=== PATIENT | female | born 1950 | race Caucasian/White ===

== ENCOUNTER 2020-04-02 06:20 | Emergency (ER) | payer MEDICARE, BC ==
[2020-04-02] MEDS ORDERED: Cephalexin 500 MG Cap PO ONE (06:43)
--- NOTE | 2020-04-02 06:50 | EDM.PDOC ---
ED HPI GENERAL MEDICAL PROBLEM - General Chief Complaint: Genitourinary Problem Stated Complaint: BLOOD IN URINE Time Seen by Provider: 04/02/20 06:35 Source of Information: Reports: Patient History Limitations: Reports: No Limitations - History of Present Illness INITIAL COMMENTS - FREE TEXT/NARRATIVE: -69 year-old female presents to the emergency room with a chief complaint of hematuria and frequency. Patient denies fever chills or abdominal pain Onset: Today Duration: Hour(s): Location: Reports: Pelvis Quality: Reports: Ache Severity: Mild Improves with: Reports: None Worsens with: Reports: None Associated Symptoms: Reports: No Other Symptoms - Related Data Allergies Allergy/AdvReac Type Severity Reaction Status Date / Time No Known Allergies Allergy Verified 04/02/20 06:38 Home Meds: Home Meds Losartan [Cozaar] 1 tab PO DAILY 04/02/20 [History] cephALEXin [Keflex] 500 mg PO Q8H #20 cap 04/02/20 [Rx] hydroCHLOROthiazide [Hydrochlorothiazide] 1 tab PO DAILY 04/02/20 [History] Past Medical History Cardiovascular History: Reports: Hypertension Genitourinary History: Reports: UTI, Recurrent Social & Family History - Tobacco Use Smoking Status *Q: Never Smoker - Recreational Drug Use Recreational Drug Use: No ED ROS GENERAL - Review of Systems Review Of Systems: See Below Constitutional: Reports: No Symptoms HEENT: Reports: No Symptoms Respiratory: Reports: No Symptoms Cardiovascular: Reports: No Symptoms Endocrine: Reports: No Symptoms GI/Abdominal: Reports: No Symptoms : Reports: Frequency, Hematuria Musculoskeletal: Reports: No Symptoms Skin: Reports: No Symptoms Neurological: Reports: No Symptoms Psychiatric: Reports: No Symptoms Hematologic/Lymphatic: Reports: No Symptoms Immunologic: Reports: No Symptoms ED EXAM, RENAL/ - Physical Exam Exam: See Below Exam Limited By: No Limitations General Appearance: Alert, WD/WN, No Apparent Distress Eye Exam: Bilateral Eye: Normal Fundi, Normal Inspection, PERRL Ears: Normal External Exam, Normal Canal, Hearing Grossly Normal Nose: Normal Inspection, Normal Mucosa, No Blood Throat/Mouth: Normal Inspection, Normal Lips, Normal Teeth, Normal Oropharynx, Normal Voice Head: Atraumatic, Normocephalic Neck: Normal Inspection, Supple, Non-Tender, Full Range of Motion Respiratory/Chest: No Respiratory Distress, Lungs Clear, Normal Breath Sounds, No Accessory Muscle Use, Chest Non-Tender Cardiovascular: Normal Peripheral Pulses, Regular Rate, Rhythm, No Edema, No Gallop, No JVD, No Murmur, No Rub GI/Abdominal: Normal Bowel Sounds, Soft, Non-Tender, No Organomegaly, No Distention, No Abnormal Bruit, No Mass (Female) Exam: Deferred Rectal (Female) Exam: Deferred Back Exam: Normal Inspection, Full Range of Motion, NT Extremities: Normal Inspection, Normal Range of Motion, Non-Tender, Normal Capillary Refill, No Pedal Edema Neurological: Alert, Oriented, CN II-XII Intact, Normal Cognition, Normal Gait, Normal Reflexes, No Motor/Sensory Deficits Psychiatric: Normal Affect, Normal Mood Skin Exam: Warm, Dry, Intact, Normal Color, No Rash Lymphatic: No Adenopathy Course - Vital Signs Last Recorded V/S: Last Vital Signs Temp 96.5 F L 04/02/20 06:35 Pulse 81 04/02/20 06:35 Resp 18 04/02/20 06:35 BP 121/74 04/02/20 06:35 Pulse Ox 97 04/02/20 06:35 - Orders/Labs/Meds Orders: Active Orders 24 hr Category Date Time Status UA RFX GURMEET AND CULT IF INDIC [URIN] Stat Lab 04/02/20 06:44 Ordered Meds: Medications Discontinued Medications Generic Name Dose Route Start Last Admin Trade Name Huyq PRN Reason Stop Dose Admin Cephalexin 500 mg 04/02/20 06:43 Keflex PO 04/02/20 06:44 ONETIME ONE Departure - Departure Time of Disposition: 06:49 Disposition: Home, Self-Care 01 Condition: Good Clinical Impression: UTI, Urinary tract infectious disease - Discharge Information Prescriptions: cephALEXin [Keflex] 500 mg PO Q8H #20 cap Instructions: Urinary Tract Infection, Adult Referrals: Dutch Pollard MD [Primary Care Provider] - Forms: ED Department Discharge Additional Instructions: Patient is to take her medication as prescribed Follow-up with your primary care physician. Return for any problems i.e. fever chills nausea vomiting . Sepsis Event Note - Evaluation Sepsis Screening Result: No Definite Risk - Focused Exam Vital Signs: Vital Signs Temp Pulse Resp BP Pulse Ox 04/02/20 06:35 96.5 F L 81 18 121/74 97 Date Exam was Performed: 04/02/20 Time Exam was Performed: 06:46 - My Orders Last 24 Hours: My Active Orders 04/02/20 06:44 UA RFX GURMEET AND CULT IF INDIC [URIN] Stat - Assessment/Plan Last 24 Hours: My Active Orders 04/02/20 06:44 UA RFX GURMEET AND CULT IF INDIC [URIN] Stat
== END 2020-04-02 07:20 | disposition home or self-care (01) ==
LOC: MW.ED 06:20
DX: N39.0 Urinary tract infection, site not specified (principal); I10 Essential (primary) hypertension; Z79.899 Other long term (current) drug therapy
CPT/HCPCS: 81001; 99283; A9270; 99282